=== PATIENT | female | born 1995 | race Asian ===

== ENCOUNTER 2016-10-14 15:49 | Emergency (ER) | payer BC, OTHER ==
[~2016-10-14] VITALS: Ht 165.1 cm; Wt 49.5 kg
[2016-10-14 15:59] VITALS: Ht 165.1 cm; Wt 49.5 kg
[2016-10-14] MEDS ORDERED: PRED20TA PO (16:25)
[2016-10-14] MEDS ORDERED: BEN25 PO (16:25)
[2016-10-14] MEDS ORDERED: CETI10CA PO (16:25)
--- NOTE | 2016-10-14 16:31 | ERD ---
ER Documentation Chief Complaint Date/Time DATE: 10/14/16 TIME: 16:25 Chief Complaint RASH ON CHEST AREA AND UNDER ARM X 1 WEEK HPI Patient is a 21-year-old female presents to the emergency department with a rash 1 week. Patient describes a rash to be patch-like, erythematous and itchy in nature. The rash is primarily on her upper body. Patient states the rash started after recently starting to have sex with her boyfriend. Patient is unsure if she is allergic to latex. She denies any throat swelling, lip swelling, tongue swelling, difficulty breathing or chest pain. Patient has not tried any plwv-dhx-otcippn medication. Patient denies any new products, creams , detergents, foods, pets or environments. ROS All systems reviewed and are negative except as per history of present illness. Medications Home Meds Active Scripts Diphenhydramine Hcl* (Benadryl*) 25 Mg Cap, 25 MG PO Q6, #30 CAP Prov:CHIKA SWANSON PA-C 10/14/16 Cetirizine Hcl* (Zyrtec*) 10 Mg Capsule, 10 MG PO DAILY, #30 TAB.CHEW Prov:CHIKA SWANSNO PA-C 10/14/16 Prednisone* (Prednisone*) 20 Mg Tab, 40 MG PO DAILY for 5 Days, TAB Prov:CHIKA SWANSON PA-C 10/14/16 Allergies Allergies: Coded Allergies: No Known Allergy (Unverified , 10/14/16) PMhx/Soc Medical and Surgical Hx: pt denies Medical Hx, pt denies Surgical Hx Hx Alcohol Use: No Hx Substance Use: No Hx Tobacco Use: No FmHx Family History: No diabetes Physical Exam Vitals Vital Signs Date Time Temp Pulse Resp B/P Pulse Ox O2 Delivery O2 Flow Rate FiO2 10/14/16 15:59 97.9 68 18 116/74 99 Physical Exam GENERAL: Well-developed, well-nourished female. Appears in no acute distress. Begin full sentences HEAD: Normocephalic, atraumatic. No deformities or ecchymosis. EYE: Pupils equal, round, and reactive to light. EOMs intact. No conjunctival erythema. No eye discharge. ENT: External ear without any masses or tenderness. Auditory canals clear bilaterally. TM visualized bilaterally, non-erythematous, non-bulging. Nasal mucosa pink with no discharge. No lip swelling, no tongue swelling, no throat swelling. Oropharynx is pink without any tonsillar erythema or exudates. No uvula deviation. No kissing tonsils. NECK: Supple. No meningismus. Normal ROM of the neck. LUNG: Clear to auscultation bilaterally. No rhonchi, wheezing, rales or coarse breath sounds. No stridor. HEART: Regular rate and rhythm. No murmurs, rubs or gallops. BACK: No midline tenderness. EXTREMITES: Equal pulses bilaterally. No peripheral clubbing, cyanosis or edema. No unilateral leg swelling. NEUROLOGIC: Alert and oriented to person, place and time. Moving all four extremities. 5/5 strength in all extremities. Normal speech. Steady gait. SKIN: Normal color. Warm and dry. Erythematous patch like, slightly raised lesions on the patient's upper chest and arms. No satellite lesions. Procedures/MDM MEDICAL DECISION MAKING: This is a 21-year-old female who presents with a rash 1 week. Vital signs were reviewed. Patient was afebrile. Patient is not diabetic. Patient did report the rash is itchy in nature. These findings, the patient's presentation is most consistent with an allergic dermatitis versus allergic reaction. I have a much lower clinical concern for necrotizing fasciitis, sepsis, gangrene, Finn-Keanu syndrome, toxic epidural necrolysis, abscess, cellulitis, herpes zoster, anaphylaxis, fungal infection, insect bite, impetigo, dermatitis. PRESCRIPTIONS: Prednisone, Benadryl, Zyrtec DISCHARGE: At this time, patient is stable for discharge and outpatient management. Anaphylaxis precautions discussed with the patient. Patient advised to return for any throat swelling, lip swelling, tongue swelling, difficulty breathing. I have advised the patient to avoid any new products, creams or possible allergens. I have advised the patient to avoid scratching the lesions. I have instructed the patient to follow-up with his/her primary care physician in 1-2 days. If symptoms persist, patient may need to see a rental sales agent for further examinations and testing. I have instructed the patient to promptly return to the ER at any time for any new or worsening symptoms including increased pain, fever, redness, swelling, warmth, difficulty breathing or vomiting. The patient and/or family expressed understanding of and agreement with this plan. All questions were answered. Home care instructions were provided. Departure Diagnosis: Primary Impression: Rash Condition: Stable Patient Instructions: Self-Care for Skin Rashes Referrals: [facility] YOU HAVE RECEIVED A MEDICAL SCREENING EXAM AND THE RESULTS INDICATE THAT YOU DO NOT HAVE A CONDITION THAT REQUIRES URGENT TREATMENT IN THE EMERGENCY DEPARTMENT. FURTHER EVALUATION AND TREATMENT OF YOUR CONDITION CAN WAIT UNTIL YOU ARE SEEN IN YOUR DOCTORS OFFICE WITHIN THE NEXT 1-2 DAYS. IT IS YOUR RESPONSIBILITY TO MAKE AN APPOINTMENT FOR FOLOW-UP CARE. IF YOU HAVE A PRIMARY DOCTOR --you should call your primary doctor and schedule an appointment IF YOU DO NOT HAVE A PRIMARY DOCTOR YOU CAN CALL OUR PHYSICIAN REFERRAL HOTLINE AT IF YOU CAN NOT AFFORD TO SEE A PHYSICIAN YOU CAN CHOSE FROM THE FOLLOWING [facility] [address] [facility]. [facility] [address] [facility] [facility] [address] [facility] [address] [facility] [address] [facility]. [facility] [address] [facility]. [facility] YOU HAVE RECEIVED A MEDICAL SCREENING EXAM AND THE RESULTS INDICATE THAT YOU DO NOT HAVE A CONDITION THAT REQUIRES URGENT TREATMENT IN THE EMERGENCY DEPARTMENT. FURTHER EVALUATION AND TREATMENT OF YOUR CONDITION CAN WAIT UNTIL YOU ARE SEEN IN YOUR DOCTORS OFFICE WITHIN THE NEXT 1-2 DAYS. IT IS YOUR RESPONSIBILITY TO MAKE AN APPOINTMENT FOR FOLOW-UP CARE. IF YOU HAVE A PRIMARY DOCTOR --you should call your primary doctor and schedule and appointment IF YOU DO NOT HAVE A PRIMARY DOCTOR YOU CAN CALL OUR PHYSICIAN REFERRAL HOTLINE AT . IF YOU CAN NOT AFFORD TO SEE A PHYSICIAN YOU CAN CHOSE FROM THE FOLLOWING [facility]: [facility] [address] [place] [address] [facility] [address] [place] [address] [facility] [address] [place] [address] Additional Instructions: Call your primary care doctor TOMORROW for an appointment during the next 1-2 days.See the doctor sooner or return here if your condition worsens before your appointment time. You may need to follow-up with a rental sales agent if rash persists. CHIKA SWANSON PA-C Oct 14, 2016 16:30
== END 2016-10-14 16:30 | disposition home or self-care (01) ==
LOC: FTE 15:49 → E/R 16:30
DX: R21 Rash and other nonspecific skin eruption (principal)
CPT/HCPCS: 99283